=== PATIENT | male | born 1945 | race Caucasian/White ===

== ENCOUNTER → 2020-06-01 | Outpatient (CLI) | payer MEDICARE | LOC: KOH-I 13:13 | DX: M25.572 Pain in left ankle and joints of left foot (principal); S93.322A Subluxation of tarsometatarsal joint of left foot, initial encounter; M77.52 Other enthesopathy of left foot and ankle; M19.072 Primary osteoarthritis, left ankle and foot; M21.42 Flat foot [pes planus] (acquired), left foot; X58.XXXA Exposure to other specified factors, initial encounter | CPT/HCPCS: 73610; 73630 ==